=== PATIENT | male | born 2000 | race Caucasian/White ===

== ENCOUNTER 2021-03-19 21:09 | Emergency (ER) | payer OTHER, SELFPAY ==
[2021-03-19 21:13] VITALS: BP 127/83; PULSE 72; RESP 16; TEMP 36.3; O2SAT 99; BMI 27.3
--- NOTE | 2021-03-19 21:25 | W.ED.NAVMDI ---
HPI - Nausea/Vomiting/Diarrhea General: Chief complaint: Nausea/Vomiting/Diarrhea Stated complaint: Vomiting Time Seen by Provider: 03/19/21 21:24 Source: patient Mode of arrival: ambulatory Limitations: no limitations History of Present Illness: HPI Narrative: 21-year-old male who had his wisdom teeth taken out late last week. States that over the last day started to have nausea and vomiting. He denies any abdominal pain or fevers. States he just not able to keep anything down. He denies any worsening improving factors. He states that he feels like he is getting dehydrated and would like some IV fluids. Patient is taking pain pills for his surgery. Denies any diarrhea. Associated nausea: Yes Associated symtoms: Reports nausea; Denies chest pain, dysuria or headache(s) Review of Systems Const: Denies: fever(s), chills, body aches or change in appetite Eyes: Denies: blurry vision or eye discomfort ENMT: Denies: throat pain or dental pain Card: Denies: chest pain Resp: Denies: dyspnea GI: Reports: nausea and vomiting : Denies: dysuria Musc: Denies: neck pain or back pain Skin/Breast: Denies: rash Neuro: Denies: headache(s) Psych: Denies: depression Christopher/Lymph: Denies: easy bruising All/Imm: Denies: urticaria [facility] ED PFSH: Medical History (Updated 03/19/21 @ 22:21 by Sade Mehta MD) Mercado's cyst of knee Strain of left knee Physical Exam Const: COMMON NORMALS: no acute distress, patient oriented x3 and healthy appearing HENMT: COMMON NORMALS: normocephalic and atraumatic HEAD & SCALP: normocephalic and atraumatic Eye: COMMON NORMALS: Equal, round and reactive pupils present and EOMs intact bilaterally PUPIL: Yes Equal, round and reactive pupils present Neck/C-Spine: COMMON NORMALS: full ROM and supple Chest: COMMONS NORMALS: normal inspection of the chest and normal palpation of entire chest wall Resp: COMMON NORMALS: normal respiratory effort, No retractions, No use of accessory muscles and clear to auscultation bilaterally AUSCULTATION: clear to auscultation bilaterally Cardio: COMMON NORMALS: regular rate, regular rhythm and No murmurs present (Cardio) RATE: regular rate RHYTHM: regular rhythm GI: COMMON NORMALS: Normal to inspection, nondistended, normoactive bowel sounds present, Soft to palpation, non-tender and no masses PALPATION: Yes Soft to palpation Extremity: COMMON NORMALS: normal to inspection and full ROM Neuro: COMMON NORMALS: patient oriented x3, moves all extremities and no focal motor deficits Psych: COMMON NORMALS: mental status grossly normal, Normal thought process present and cooperative THOUGHT PROCESS: Normal thought process present Skin: COMMON NORMALS: no rashes or lesions noted and no wounds GENERAL SKIN EXAM: no rashes or lesions noted Course Vital Signs: Vital signs: Vital Signs Temperature 97.3 F L 03/19/21 21:13 Pulse Rate 72 03/19/21 21:13 Respiratory Rate 16 03/19/21 21:13 Blood Pressure 127/83 03/19/21 21:13 Pulse Oximetry 99 03/19/21 21:13 MDM - Nausea/Vomiting/Diarrhea MDM Narrative: Medical decision making narrative: Patient presents here with vomiting. His blood work here is normal he feels much improved after IV fluids and Zofran. Will prescribe him Zofran for home. He is to follow-up his PCP and return to the ER if worsening. He understands and agrees to plan. Lab Data: Labs: Lab Results 03/19/21 03/19/21 Range/Units 21:45 21:45 WBC 11.9 H (4.0-10.0) 10^3/ uL RBC 5.44 H (4.1-5.3) 10^6/u L Hgb 16.4 (11.7-16.6) g/dL Hct 45.6 (42.0-52.0) % MCV 83.8 (80-94) fl MCH 30.1 (28.0-34.0) pg MCHC 36.0 (30.0-36.0) g/dL RDW 11.8 L (12.1-15.1) % Plt Count 362 (130-400) 10^3/c mm MPV 9.0 (7.4-10.4) fL Neut % (Auto) 84.9 % Lymph % (Auto) 10.4 % Mclennan % (Auto) 4.0 % Eos % (Auto) 0.1 % Baso % (Auto) 0.3 % Neut # (Auto) 10.09 H (1.8-7.7) 10^3/u L Lymph # (Auto) 1.2 (0.8-4.8) 10^3/u L Mclennan # (Auto) 0.5 (0.2-0.9) 10^3/u L Eos # (Auto) 0.0 (0.0-0.8) 10^3/u L Baso # (Auto) 0.0 (0.0-0.1) 10^3/u L Nucleated RBC % (a uto) 0 % Nucleated RBCs # 0.0 /100WBC Sodium 136 (136-145) mmol/L Potassium 4.1 (3.5-5.1) mmol/L Chloride 98 (98-107) mmol/L Carbon Dioxide 23 (22-29) mmol/L Anion Gap 19.1 H (5-19) BUN 16 (6-20) mg/dL Creatinine 0.6 L (0.7-1.2) mg/dL GFR Calculation 168.5 H (90-130) mL/min Glucose 91 (65-115) mg/dL Calculated Osmolal ity 283 L (285-295) mOsm/k g Calcium 9.8 (8.5-10.5) mg/dL Total Bilirubin 0.5 (0.15-1.2) mg/dL AST 15 (0-40) U/L ALT 17 (0-41) U/L Alkaline Phosphata se 84 (40-130) IU/L Total Protein 7.8 (6.6-8.7) g/dL Albumin 4.7 (3.5-5.2) g/dL Globulin 3.1 (1.3-4.6) g/dL Lipase 12 L (13-60) U/L Discharge Plan Discharge Patient Disposition: Home Clinical Impression: Vomiting Qualifiers: Vomiting type: unspecified Vomiting Intractability: non-intractable Nausea presence: with nausea Qualified Code(s): R11.2 - Nausea with vomiting, unspecified Condition: Stable Prescriptions: New ondansetron 4 mg tablet,disintegrating 4 mg PO Q6H PRN (Reason: nausea and vomiting) Qty: 14 RF: 0 No Action oxycodone-acetaminophen 5-325 mg tablet 1 tab PO Q4H PRN (Reason: Pain) RF: 0 chlorhexidine gluconate 0.12 % mouthwash 1 ea PO BID RF: 0 Discharge Orders: Discharge ED (Routine); Ordered 03/19/21 Ordered By: Sade Mehta Referrals: Darline Hernandez MD [Primary Care Provider] - 1-3 days Discharge Diet: Advance as tolerated Discharge Activity: Resume usual activity Patient Instructions: Acute Nausea and Vomiting (ED) Coding Level of Care Code ED Customer Experience Manager for Chg Fwd Exam Comprehensive
[2021-03-19] MEDS: ondansetron 2 mg/ML SDV 2 mL 4 MG IVP (21:30)
[2021-03-19] MEDS: sodium chloride 0.9% 1,000 ML 999 ML IV ×2 (21:31)
[2021-03-19 21:55] LABS: Basophils % 0.3 %; Eosinophils % 0.1 %; Hematocrit 45.6 % (42.0-52.0); Hemoglobin 16.4 g/dL (11.7-16.6); Lymphocytes # 1.2 10^3/uL (0.8-4.8); Lymphocytes % 10.4 %; Mean Corpuscular Hemoglobin 30.1 pg (28.0-34.0); Mean Corpuscular Volume 83.8 fl (80-94); Monocytes # 0.5 10^3/uL (0.2-0.9); Neutrophils # 10.09 10^3/uL (1.8-7.7); Neutrophils % 84.9 %; Nucleated Red Blood Cells % 0 %; Platelet Count 362 10^3/cmm (130-400); Red Blood Count 5.44 10^6/uL (4.1-5.3); Red Cell Distribution Width 11.8 % (12.1-15.1); White Blood Count 11.9 10^3/uL (4.0-10.0)
[2021-03-19 22:16] LABS: Alanine Aminotransferase 17 U/L (0-41); Albumin Level 4.7 g/dL (3.5-5.2); Alkaline Phosphatase 84 IU/L (40-130); Anion Gap 19.1 (5-19); Aspartate Amino Transferase 15 U/L (0-40); Blood Urea Nitrogen 16 mg/dL (6-20); Calcium 9.8 mg/dL (8.5-10.5); Carbon Dioxide 23 mmol/L (22-29); Chloride 98 mmol/L (98-107); Globulin 3.1 g/dL (1.3-4.6); Glomerular Filtration Rate 168.5 mL/min (90-130); Glucose 91 mg/dL (65-115); Lipase 12 U/L (13-60); Osmolality Calculated 283 mOsm/kg (285-295); Potassium 4.1 mmol/L (3.5-5.1); Sodium 136 mmol/L (136-145); Total Bilirubin 0.5 mg/dL (0.15-1.2); Total Protein 7.8 g/dL (6.6-8.7)
[2021-03-19 22:24] VITALS: BP 122/65; PULSE 73; RESP 16; O2SAT 99
--- NOTE | 2021-03-19 22:48 | PC.NURSE ---
Given apple juice at pt request. Reports nausea is a lot better.
[2021-03-19 22:49] VITALS: BP 126/68; PULSE 61; RESP 16; O2SAT 99
[2021-03-19 23:07] VITALS: BP 125/81; PULSE 60; RESP 16; O2SAT 100
== END 2021-03-19 23:08 | disposition home or self-care (01) ==
PROVIDERS: Emergency Provider Emergency Medicine; PCP Family Medicine
DX: R11.2 Nausea with vomiting, unspecified (principal)
CPT/HCPCS: 80053; 83690; 85025; 96361; 96374; 99283; J2405; J7030

== ENCOUNTER 2022-09-08 18:16 | Emergency (ER) | payer BC, SELFPAY ==
[2022-09-08 18:23] VITALS: BP 138/84; PULSE 70; RESP 16; TEMP 36.8; O2SAT 97; BMI 30.1
--- NOTE | 2022-09-08 18:43 | XRR_ITS ---
PROCEDURE INFORMATION: Exam: XR Left Foot Exam date and time: 09/08/2022 7:08 PM Age: 22 years old Clinical indication: Injury or trauma; Other: Dropped block on foot; Crushing; Left TECHNIQUE: Imaging protocol: Radiologic exam of the Left foot. Views: 3 or more views. COMPARISON: No relevant prior studies available. FINDINGS: Bones/joints: Mild hallux valgus. No evidence for acute fracture. Soft tissues: There is edema in the soft tissues dorsal to the forefoot. XR/XR foot LT min 3V* [id number] IMPRESSION: There is edema in the soft tissues dorsal to the forefoot.
--- NOTE | 2022-09-08 20:36 | W.ED.EXTPRO ---
HPI - Extremity Problem General: Chief complaint: Extremity Injury, Lower Stated complaint: Left Foot Injury Time Seen by Provider: 09/08/22 18:20 History of Present Illness: 22-year-old male patient comes in for evaluation of wound to the left foot. Last night patient was loading wood into his furnace when he dropped a piece onto his left foot. Patient has had increased bruising and swelling to the foot and came in for evaluation of injury. Patient has been able to bear weight. Patient denies any other concerns. Review of Systems Musc: Reports: extremity pain (Bruising and discomfort to the left foot at the third MTP) [facility] ED PFS: Medical History (Updated 09/08/22 @ 20:39 by JIAN Dong) Mercado's cyst of knee Strain of left knee Physical Exam Const: COMMON NORMALS: alert HENMT: COMMON NORMALS: normocephalic HEAD & SCALP: normocephalic Resp: COMMON NORMALS: normal respiratory effort Cardio: COMMON NORMALS: regular rate RATE: regular rate Back/Pelvis: COMMON NORMALS: thoracic and lumbar spine normal to inspection Extremity: LEFT LOWER EXTREMITY: Yes foot & digits (Ecchymosis and swelling to the left lateral foot with a abrasion) Neuro: SENSORIUM/ORIENTATION: Yes alert Skin: TRAUMA: abrasion (Abrasion third MTP left foot) Course Vital Signs: Vital signs: Vital Signs Temperature 98.2 F 09/08/22 18:23 Pulse Rate 70 09/08/22 20:42 Respiratory Rate 14 09/08/22 20:42 Blood Pressure 138/84 09/08/22 18:23 Pulse Oximetry 97 09/08/22 18:23 Oxygen Delivery Me thod 09/08/22 18:23 MDM - Extremity (Nontraumatic) Medical Decision Making Patient comes in for injury to the left foot. On exam we note ecchymosis and an abrasion to the third MTP. No crepitus is noted on palpation. Mild tenderness is noted to the dorsal foot. Differential diagnosis includes fracture, contusion, dislocation. X-rays noted no fracture or dislocation. Reviewed exam with patient with recommendations for treatment of contusion. Lab Data Radiology Impressions Foot X-Ray 09/08/22 18:43 IMPRESSION: There is edema in the soft tissues dorsal to the forefoot. Discharge Plan Discharge Patient Disposition: Home Clinical Impression: Contusion of foot, left Qualifiers: Encounter type: initial encounter Qualified Code(s): S90.32XA - Contusion of left foot, initial encounter Condition: Stable Prescriptions: No Action oxycodone-acetaminophen 5-325 mg tablet 1 tab PO Q4H PRN (Reason: Pain) chlorhexidine gluconate 0.12 % mouthwash 1 ea PO BID ondansetron 4 mg tablet,disintegrating 4 mg PO Q6H PRN (Reason: nausea and vomiting) Qty: 14 0RF Discharge Orders: Discharge ED (Routine); Ordered 09/08/22 Ordered By: Ollie Madera Referrals: Darline Hernandez MD [Primary Care Provider] - Discharge Diet: Usual diet Discharge Activity: Increase activity as tolerated Patient Instructions: Foot Contusion (ED) Activity Restrictions/Additional Instructions: Drink plenty of fluids. Use acetaminophen or ibuprofen for pain. Use ice packs for swelling and bruising. Activity as tolerated. Follow-up with primary care as needed. Return to ED for worsening symptoms such as redness, fever, increasing swelling or new concerns. Coding Level of Care Code ED Supervisor Power Reactor for Tim Maguire
[2022-09-08 20:42] VITALS: PULSE 70; RESP 14
== END 2022-09-08 20:43 | disposition home or self-care (01) ==
PROVIDERS: Emergency Provider Nurse Practitioner Family; PCP Family Medicine
DX: S90.32XA Contusion of left foot, initial encounter (principal); W20.8XXA Other cause of strike by thrown, projected or falling object, initial encounter
CPT/HCPCS: 73630; 99283